=== PATIENT | male | born 1955 | race Caucasian/White ===

== ENCOUNTER 2023-10-03 06:21 | Outpatient (RCR) | payer BC, MEDICARE, SELFPAY | END 2023-10-03 09:10 | disposition home or self-care (01) | LOC: RPT 06:21 | PROVIDERS: ATTENDING PHYSICIAN Physician Assistant Medical; FAMILY PHYSICIAN Family Medicine | DX: R26.9 Unspecified abnormalities of gait and mobility (principal); Z73.6 Limitation of activities due to disability; M25.561 Pain in right knee | CPT/HCPCS: 97110; 97161 ==

== ENCOUNTER 2023-10-16 05:57 | Inpatient (IN) | payer BC, MEDICARE, SELFPAY ==
--- NOTE | 2023-09-16 09:50 | CM ---
Patient is scheduled for an elective R TKR on 10/16/23. Spoke with patient prior to surgery via telephone. Introduced role of Orthopedic Navigator. Patient reports that he lives with his and son in a two story home. There are two steps to enter
and a flight of steps to the second floor. There is a full bathroom on the entry engineer. He currently functions independently. He has a cane and rolling walker. He has never had VN services. PCP is Jovanni Perez.
Discussed orthopedic program and post surgical plans. Reviewed anticipated length of stay and that goal is for him to return home at discharge. Also reviewed outpatient PT. Patient is in agreement with tentative plan and will go directly to
outpatient PT at [facility]. He will have support from his , son and sister (who lives close by) when he goes home.
Patient will complete online education.
Plan: Orthopedic Navigator will remain available to assist with the care of patient and will reassess discharge needs after surgery.
[2023-09-25 09:11] VITALS: BMI 32.2
[2023-09-25 09:53] LABS: Hematocrit 43.1 % (39.0-52.0); Hemoglobin 15.3 g/dL (13.0-18.0); Mean Corp Hgb Conc. 35.5 g/dL (33.0-37.0); Mean Corpuscular Hgb 30.8 pg (27.0-31.0); Mean Corpuscular Volume 86.9 fL (80.0-94.0); Mean Platelet Volume 11.1 fL (7.4-10.4); Platelet Count 163 10^3/uL (130-400); Red Blood Cell Count 4.96 10^6/uL (4.70-6.10); Red Cell Dist. Width 12.9 % (11.5-14.5); White Blood Cell Count 5.1 10^3/uL (4.8-10.8)
[2023-09-25 11:30] LABS: ALT (SGPT) 57 U/L (0-50); AST (SGOT) 45 U/L (17-59); Albumin 4.6 g/dl (3.5-5.0); Alkaline Phosphatase 49 U/L (38-126); Blood Urea Nitrogen 21 mg/dl (9-20); Calcium 9.8 mg/dl (8.4-10.2); Carbon Dioxide 26 mmol/L (22-30); Chloride 104 mmol/L (98-107); Estimated Creatinine Clearance 83 ml/min; Glucose 122 mg/dl (70-99); Potassium 4.5 mmol/L (3.5-5.1); Sodium 137 mmol/L (135-145); Total Bilirubin 1.4 mg/dl (0.2-1.3); Total Protein 7.6 g/dl (6.3-8.2); eGFR > 60.00
[2023-09-25 12:06] LABS: Glycohemoglobin (HgbA1c) 6.6 % (4.0-5.6)
[2023-09-25 13:54] VITALS: BMI 32.2
[2023-10-16] VITALS (16 sets, daily range): BP systolic 117–157; BP diastolic 71–93; PULSE 70; O2SAT 99
[2023-10-16] MEDS: CELEBREX 200 MG PO (06:10)
[2023-10-16] MEDS: TYLENOL 650 MG PO ×4 (06:10→19:41)
[2023-10-16] MEDS: NORMOSOL-R 1000 IV ×2 (06:40→08:30)
[2023-10-16] MEDS: ROXICODONE 5 MG PO (10:43)
--- NOTE | 2023-10-16 11:52 | PTCARENOTE ---
Patient admitted from [facility] for right total knee replacement.The patient denies any pain.Neurovascular assessment is within normal limits and ongoing.Vital signs are stable.The Aquacell dressing is intact without drainage.The patient is in his bed
with the call powers in reach.Physical therapy is waiting to see him .
--- NOTE | 2023-10-16 14:00 | W.PN.UPDATE ---
Update Note
Progress Note Update
Patient doing well postop. VSS. Pulm: nonlabored. CV: regular. RLE: NVI distally. Calf soft. Able to fully extend. Dressing CDI. Xrays as expected. ASA for DVT prophylaxis. Plan for discharge home tomorrow with outpatient PT on Friday.
[2023-10-16] MEDS: ANCEF 5 IV ×2 (17:10→22:06)
[2023-10-16] MEDS: ASPIRIN 325 MG PO (17:10)
[2023-10-16] MEDS: TORADOL 15 MG IV (17:11)
[2023-10-16] MEDS: BACTROBAN 2% OINTMENT 1 APPLIC NASAL (19:41)
[2023-10-16] MEDS: SENOKOT 17.1999999999999993 MG PO (19:41)
[2023-10-16] MEDS: DECADRON 4 MG PO (19:41)
[2023-10-16] MEDS: COLACE 100 MG PO (19:41)
[2023-10-16] MEDS: PEPCID 20 MG PO (21:26)
[2023-10-17] MEDS: TYLENOL 650 MG PO ×3 (00:30→08:29)
[2023-10-17 04:09] VITALS: BP 125/66
[2023-10-17] MEDS: TORADOL 15 MG IV (05:29)
[2023-10-17 07:00] VITALS: BP 134/79
--- NOTE | 2023-10-17 07:28 | W.PN.ORTHO ---
Today's Communication / Plan
-
Plan for discharge home today after PT
Assessment
.
Distal Motor Intact: Yes
Dressing:
Clean, dry and intact.
Assessment:
Doing well post op R TKR
Plan
.
Surgery / Date: RTKR 10/16/2023
DVT Prophylaxis: Aspirin
Activity:
Out of bed.
PT/OT
Discharge Plan: Home w/ Outpatient PT
Subjective
.
.:
Patient resting comfortably. OOB this morning. Walking last evening
Vital Signs and Labs
.
Vital Signs and Labs:
Lab Results
09/25/23 08:53
09/25/23 08:53
Temp Pulse Resp BP Pulse Ox
98.2 F 70 22 125/66 96
10/17/23 04:09 10/17/23 04:09 10/17/23 04:09 10/17/23 04:09 10/17/23 04:09
Non-invasive Hgb result: 13.5
Physical Exam
-
Pulm: nonlabored
CV: regular
Abd: benign
Ext: NVI distally. Calf soft. Dressing CDI. ROM 0-90 degrees.
[2023-10-17] MEDS: ROXICODONE 5 MG PO (08:27)
[2023-10-17] MEDS: ASPIRIN 325 MG PO (08:28)
[2023-10-17] MEDS: SENOKOT 17.1999999999999993 MG PO (08:28)
[2023-10-17] MEDS: DECADRON 4 MG PO (08:28)
[2023-10-17] MEDS: MOBIC 15 MG PO (08:28)
[2023-10-17] MEDS: COLACE 100 MG PO (08:29)
[2023-10-17] MEDS: BACTROBAN 2% OINTMENT 1 APPLIC NASAL (08:29)
[2023-10-17 09:00] VITALS: BP 170/88
--- NOTE | 2023-10-17 09:35 | W.PN.ORTHO ---
Today's Communication / Plan
-
d/c
Assessment
.
Distal Motor Intact: Yes
Dressing:
Clean, dry and intact.
Plan
.
Surgery / Date: R TKR 10/16/2023 Dr. Nunez
DVT Prophylaxis: Aspirin
Activity:
Out of bed.
PT/OT
Discharge Plan: Home w/ Outpatient PT
Subjective
.
.:
Patient resting comfortably.
Vital Signs and Labs
.
Vital Signs and Labs:
Lab Results
09/25/23 08:53
09/25/23 08:53
Temp Pulse Resp BP Pulse Ox
98.0 F 81 18 134/79 96
10/17/23 07:00 10/17/23 07:00 10/17/23 07:00 10/17/23 07:00 10/17/23 07:00
Non-invasive Hgb result: 13.5
Physical Exam
-
HEENT: No pallor, cyanosis, or jaundice. Throat clear.
NECK: Supple. No JVD.
CVS: RRR, no edema.
ABDOMEN: Soft, non-tender. No distension. BS+/normal.
EXTREMITIES: strength equal, no calf pain with palpation
SPOUTER: AOx3. No focal deficits. health policy nurse grossly intact
[2023-10-17 09:47] VITALS: BP 135/73; PULSE 77
--- NOTE | 2023-10-17 09:47 | W.DS.TRANS ---
DC Summary - Emergency Medicine Physician Assistant
-
Discharge Instructions:
Sleep Apnea Risk Low
Discharge Diagnosis/Procedures R TKA Dr. Nunez
Diet Diabetic, Carb Controlled
Activity With Walker
Driving Restrictions No driving
Bathing Restrictions OK to Shower
Other Services PT
Instructions:
Stand-Alone Forms: Total Hip/Knee Replacement D/C
Changes to Home Medications: Yes
Discharge Medications:
DC Medications w/original date entered in [facility]
ibuprofen 200 mg tablet (Advil) 200 mg PO Q6H PRN pain 09/19/23
omega-3 fatty acids 1,000 mg PO DAILY 09/19/23
mupirocin 2 % topical ointment 1 applic topical BID infection prevention #1 tube 09/25/23
Saccharomyces boulardii 250 mg capsule (Florastor) 250 mg PO BID #1 cap 10/17/23
acetaminophen 650 mg tablet,extended release (Tylenol 8 Hour) 650 mg PO QID #0 tabs 10/17/23
aspirin 325 mg tablet 325 mg PO DAILY blood clot prevention #1 tab 10/17/23
cefadroxil 500 mg capsule 500 mg PO BID infection prevention #14 caps 10/17/23
cyclobenzaprine 5 mg tablet 5 mg PO BID muscle pain/sleep #30 tabs 10/17/23
docusate sodium 100 mg capsule (Colace) 100 mg PO BID stool softner #1 cap 10/17/23
famotidine 20 mg tablet 20 mg PO HS GI prophylaxis #30 tabs 10/17/23
gabapentin 300 mg capsule 300 mg PO HS sleep/pain #10 caps 10/17/23
magnesium hydroxide 400 mg/5 mL oral suspension (Milk of Magnesia) 30 ml PO HS PRN Constipation #1 mL 10/17/23
meloxicam 15 mg tablet 15 mg PO DAILY anti-inflammatory #14 tabs 10/17/23
oxycodone 5 mg tablet 5 mg PO Q6H PRN 1 tab moderate pain, 2 tabs severe pain #30 tabs 10/17/23
sennosides 8.6 mg tablet (Senokot) 17.2 mg (2 x 8.6 mg) PO BID laxative #2 tabs 10/17/23
Home Medication Changes
cefadroxil 500 mg capsule 500 mg PO BID infection prevention #14 caps 10/17/23
cyclobenzaprine 5 mg tablet 5 mg PO BID muscle pain/sleep #30 tabs 10/17/23
famotidine 20 mg tablet 20 mg PO HS GI prophylaxis #30 tabs 10/17/23
gabapentin 300 mg capsule 300 mg PO HS sleep/pain #10 caps 10/17/23
meloxicam 15 mg tablet 15 mg PO DAILY anti-inflammatory #14 tabs 10/17/23
oxycodone 5 mg tablet 5 mg PO Q6H PRN 1 tab moderate pain, 2 tabs severe pain #30 tabs 10/17/23
Pending Results: No
--- NOTE | 2023-10-17 10:11 | CM ---
Addendum entered by TIRSO Allison 10/17/23 11:51:
Patient did hear back from surgeon office and was able to picker feeder the DVT unit.
Original Note:
Reviewed chart and held rounds with PT, OT and nursing. Patient admitted as planned for elective R TKR. Met with patient at bedside. Confirmed information previously obtained for assessment. Also discussed discharge plans. The plan is for patient to
return home at discharge. He will have support from his and son when he goes home. Patient will go directly to outpatient PT and come to [facility]. He has an appointment scheduled for 10/21/23.
Patient has all needed DME. He is inquiring about DVT, prophylaxis from Orthopedics office. Assisted patient to call office to see if he can get this prior to discharge home today.
He will use [facility] pharmacy for discharge prescriptions.
[2023-10-17 11:00] VITALS: BP 152/76
== END 2023-10-17 12:16 | disposition home or self-care (01) | DRG 470 ==
LOC: 2 SOUTH 05:57
PROVIDERS: ADMITTING PHYSICIAN Orthopaedic Surgery; FAMILY PHYSICIAN Family Medicine
PROC: 0SRC0J9 Replacement of Right Knee Joint with Synthetic Substitute, Cemented, Open Approach (ICD-10-PCS; 2023-10-16)
DX: M17.11 Unilateral primary osteoarthritis, right knee (principal)
CPT/HCPCS: 36415; 73560; 80053; 83036; 85027; 87070; 93005; 97110; 97116; 97162; 97166; 97530; 97535; C1713; C1776

== ENCOUNTER 2023-10-21 08:22 | Outpatient (RCR) | payer BC, SELFPAY | END 2023-10-21 23:59 | disposition home or self-care (01) | LOC: RPT 08:22 | PROVIDERS: ATTENDING PHYSICIAN Orthopaedic Surgery; FAMILY PHYSICIAN Family Medicine | DX: Z47.1 Aftercare following joint replacement surgery (principal); Z96.651 Presence of right artificial knee joint; Z73.6 Limitation of activities due to disability | CPT/HCPCS: 97010; 97110; 97140; 97162 ==

== ENCOUNTER → 2023-10-28 12:19 | Outpatient (REF) | payer BC, SELFPAY | LOC: RAD 12:19 | PROVIDERS: ATTENDING PHYSICIAN Physician Assistant Surgical; FAMILY PHYSICIAN Family Medicine | DX: M79.661 Pain in right lower leg (principal) | CPT/HCPCS: 93971 ==

== ENCOUNTER 2023-11-21 11:24 | Outpatient (RCR) | payer BC, SELFPAY | END 2023-11-21 23:59 | disposition home or self-care (01) | LOC: RPT 11:24 | PROVIDERS: ATTENDING PHYSICIAN Orthopaedic Surgery; FAMILY PHYSICIAN Family Medicine | DX: Z47.1 Aftercare following joint replacement surgery (principal); Z96.651 Presence of right artificial knee joint; Z73.6 Limitation of activities due to disability; M62.81 Muscle weakness (generalized) | CPT/HCPCS: 97010; 97110; 97116; 97140; 97530 ==

== ENCOUNTER 2023-12-24 12:54 | Outpatient (RCR) | payer BC, SELFPAY | END 2023-12-24 23:59 | disposition home or self-care (01) | LOC: RPT 12:54 | PROVIDERS: ATTENDING PHYSICIAN Orthopaedic Surgery; FAMILY PHYSICIAN Family Medicine | DX: Z47.1 Aftercare following joint replacement surgery (principal); Z96.651 Presence of right artificial knee joint | CPT/HCPCS: 97010; 97110; 97140; 97530 ==

== ENCOUNTER 2024-01-23 10:52 | Outpatient (RCR) | payer BC, SELFPAY | END 2024-01-23 23:59 | disposition home or self-care (01) | LOC: RPT 10:52 | PROVIDERS: ATTENDING PHYSICIAN Orthopaedic Surgery; FAMILY PHYSICIAN Family Medicine | DX: Z47.1 Aftercare following joint replacement surgery (principal); Z96.651 Presence of right artificial knee joint; Z73.6 Limitation of activities due to disability | CPT/HCPCS: 97010; 97110; 97112; 97140; 97530 ==

== ENCOUNTER 2024-02-20 10:03 | Outpatient (RCR) | payer BC, SELFPAY | END 2024-02-20 23:59 | disposition home or self-care (01) | LOC: RPT 10:03 | PROVIDERS: ATTENDING PHYSICIAN Orthopaedic Surgery; FAMILY PHYSICIAN Family Medicine | DX: Z47.1 Aftercare following joint replacement surgery (principal); Z96.651 Presence of right artificial knee joint | CPT/HCPCS: 97010; 97110; 97112; 97140; 97530 ==

== ENCOUNTER 2024-03-23 10:27 | Outpatient (RCR) | payer BC, SELFPAY | END 2024-03-23 23:59 | disposition home or self-care (01) | LOC: RPT 10:27 | PROVIDERS: ATTENDING PHYSICIAN Orthopaedic Surgery; FAMILY PHYSICIAN Family Medicine | DX: Z47.1 Aftercare following joint replacement surgery (principal); Z73.6 Limitation of activities due to disability; M62.81 Muscle weakness (generalized); R26.89 Other abnormalities of gait and mobility; M71.21 Synovial cyst of popliteal space [Baker], right knee; Z96.651 Presence of right artificial knee joint | CPT/HCPCS: 97010; 97110; 97112; 97530 ==